=== PATIENT | male | born 1950 | race Caucasian/White ===

== ENCOUNTER → 2016-04-04 | Outpatient (REF) | payer OTHER | LOC: M LAB REF 12:21 | PROVIDERS: ATTEND Internal Medicine | DX: Z01.89 Encounter for other specified special examinations (principal) ==

== ENCOUNTER → 2016-05-06 | Outpatient (CLI) | payer OTHER ==
[2016-05-06 17:38] LABS: ALBUMIN 4.1 GM/DL (3.2-5.2); ANION GAP 10 MEQ/L (8-16); BLOOD UREA NITROGEN 12 MG/DL (7-18); CALCIUM LEVEL 8.5 MG/DL (8.8-10.2); CARBON DIOXIDE LEVEL 25 MEQ/L (21-32); CHLORIDE LEVEL 102 MEQ/L (98-107); CREATININE FOR GFR 0.86 MG/DL (0.70-1.30); GLOMERULAR FILTRATION RATE > 60.0 (>49); GLUCOSE, FASTING 86 MG/DL (80-110); PHOSPHORUS LEVEL 2.7 MG/DL (2.5-4.9); POTASSIUM SERUM 4.8 MEQ/L (3.5-5.1); SODIUM LEVEL 137 MEQ/L (136-145)
== END ==
LOC: M WUC 10:53
PROVIDERS: ATTEND Physician Assistant
DX: R39.12 Poor urinary stream (principal)

== ENCOUNTER → 2017-08-17 | Outpatient (REF) | payer MEDICARE, OTHER ==
[2017-08-17 17:41] LABS: INR 0.94; PROTHROMBIN TIME 12.7 SECONDS (12.4-14.5)
== END ==
LOC: M LAB REF 16:38
DX: R23.9 Unspecified skin changes (principal)
CPT/HCPCS: 85610

== ENCOUNTER → 2017-12-11 | Outpatient (REF) | payer MEDICARE, OTHER ==
[2017-12-11 15:37] LABS: IRON (FE) 70 UG/DL (65-175); PERCENT SATURATION 22.9 % (19.7-50.0); TOTAL IRON BINDING CAPACITY 306 UG/DL (250-450)
[2017-12-11 15:49] LABS: FOLATE 11.4 NG/ML
== END ==
LOC: M LAB REF 12:31
DX: D64.9 Anemia, unspecified (principal)
CPT/HCPCS: 82746

== ENCOUNTER → 2017-12-19 | Outpatient (REF) | payer MEDICARE, OTHER ==
[2017-12-19 13:40] LABS: BASO % 0.2 % (0.0-1.0); EOS # 0.1 10^3/uL (0.0-0.50); HEMATOCRIT 37.4 % (42.0-52.0); HEMOGLOBIN 12.4 g/dl (13.5-17.5); IMMATURE GRANULOCYTE % 0.4 % (0-3.0); LYMPH # 0.7 10^3/uL (1.5-4.5); LYMPH % 14.2 % (24.0-44.0); MEAN CORPUSCULAR HEMOGLOBIN 34.5 pg (27.0-33.0); MEAN CORPUSCULAR HGB CONC 33.2 g/dl (32.0-36.5); MEAN CORPUSCULAR VOLUME 104.2 fl (80.0-96.0); MONO # 0.7 10^3/uL (0.0-0.8); MONO % 13.8 % (0.0-5.0); NEUTROPHILS # 3.4 10^3/uL (1.8-7.7); NEUTROPHILS % 70.4 % (36.0-66.0); PLATELET COUNT, AUTOMATED 208 10^3/uL (150-450); RED BLOOD COUNT 3.59 10^6/uL (4.30-6.10); RED CELL DISTRIBUTION WIDTH 14.1 % (11.5-14.5); WHITE BLOOD COUNT 4.9 10^3/uL (4.0-10.0)
[2017-12-19 13:50] LABS: REASON FOR REVIEW WBC/LEUKEMIA/BLAST; SLIDE REVIEW Report; SOURCE PERIPHERAL SMEAR
== END ==
LOC: M LAB REF 13:21
DX: D72.819 Decreased white blood cell count, unspecified (principal)
CPT/HCPCS: 85025

== ENCOUNTER → 2018-04-28 | Outpatient (CLI) | payer MEDICARE, OTHER ==
--- NOTE | 2018-04-28 12:39 | REP ---
CHEST PA/LATERAL: 04/28/2018. COMPARISON: CT chest 10/31/2012; chest x-ray 05/03/2014, 04/22/2010. CLINICAL HISTORY: Cough and fever, unspecified. FINDINGS: The lung damian are well inflated. There is some basilar fibrotic change and emphysematous changes mid and upper lung zones. Symmetric findings over the anterior 6th rib suggest nipple shadows. I do not see definite effusion, dense consolidation, or parenchymal lung mass. Heart is not enlarged. The aorta is without aneurysm and normal for age. The airway is intact. No vascular redistribution or pulmonary edema. Bony thorax shows marginal osteophytes greatest in the lower thoracic spine anteriorly but without compression deformity or destructive lesion. No free air under the diaphragm. IMPRESSION: 1. Some basilar fibrotic changes with emphysematous changes mid and upper lung zones. No dense consolidation, pleural effusion, or definite mass. Symmetric densities overlying the 6th ribs bilaterally, consistent with nipple shadows. 2. Diffuse degenerative changes, lower thoracic upper lumbar spine, no compression deformity. 3. Heart, mediastinal and hilar contours, aorta, and airway all intact. Electronically Signed by Andrea Espinal MD 04/28/2018 06:57 P
== END ==
LOC: M WUC 10:53
PROVIDERS: ATTEND Physician Assistant
DX: R05 Cough (principal); R50.9 Fever, unspecified

== ENCOUNTER → 2018-05-02 | Outpatient (CLI) | payer MEDICARE, OTHER ==
--- NOTE | 2018-05-02 14:10 | REP ---
Chest two views HISTORY: Shortness of breath Comparison: 04/28/2018 An increase in interstitial markings is present in the lower lobes consistent with chronic interstitial change. The heart is normal in size. The pulmonary vasculature is normal in appearance. The bony structure is intact. IMPRESSION: Bibasilar chronic interstitial fibrosis. Electronically Signed by Checo Knapp MD 05/02/2018 02:01 P
== END ==
LOC: M WUC 12:36
PROVIDERS: ATTEND Nurse Practitioner Family
DX: J84.10 Pulmonary fibrosis, unspecified (principal); R06.02 Shortness of breath

== ENCOUNTER → 2018-05-15 | Outpatient (CLI) | payer MEDICARE, OTHER ==
--- NOTE | 2018-05-15 11:47 | REP ---
CHEST X-RAY: Two views. HISTORY: Shortness of breath. COMPARISON STUDY: May 02, 2018. FINDINGS: Right hemidiaphragm remains slightly elevated. There is linear plate-like atelectasis in the right base today, which is a new finding. No definite infiltrate. Minimal linear plate-like atelectasis is seen along the left heart border as well. Pleural angles are sharp. Heart is not felt to be enlarged. There are degenerative changes in the thoracic spine. IMPRESSION: Mild bibasilar plate-like atelectasis, right more so than left. No definite infiltrate. Electronically Signed by Al Cartagena MD 05/15/2018 12:26 P
== END ==
LOC: M WUC 09:26
PROVIDERS: ATTEND Physician Assistant
DX: R06.09 Other forms of dyspnea (principal)

== ENCOUNTER 2018-08-31 15:41 | Emergency (ER) | payer MEDICARE, OTHER ==
[2018-08-31] MEDS ORDERED: NAPR-885 OR (15:53)
[2018-08-31] MEDS ORDERED: NYAM10003 EXT (15:53)
[2018-08-31] MEDS ORDERED: SIMV20TA2 OR (15:53)
[2018-08-31] MEDS ORDERED: MONT10TA2 OR (15:53)
[2018-08-31] MEDS ORDERED: CICL8SOL3 EXT (15:53)
[2018-08-31 15:59] VITALS: BP 144/66
[2018-08-31] MEDS ORDERED: ADACEL/BOOSTRIX VACCINE (DIPHTH/PERTUSS/ACELL/TETANUS)0.5ML SYR (90715) IM ONE (16:15)
[2018-08-31] MEDS ORDERED: DERMABOND TOPICAL SKIN ADHESIVE TOP ONE (16:15)
[2018-08-31 16:22] LABS: BASO % 0.4 % (0.0-1.0); EOS # 0.1 10^3/uL (0.0-0.50); EOS % 1.4 % (0.0-3.0); HEMATOCRIT 35.4 % (42.0-52.0); HEMOGLOBIN 11.8 g/dl (13.5-17.5); LYMPH # 0.7 10^3/uL (1.5-4.5); LYMPH % 14.8 % (24.0-44.0); MEAN CORPUSCULAR HGB CONC 33.3 g/dl (32.0-36.5); MONO # 0.7 10^3/uL (0.0-0.8); MONO % 13.3 % (0.0-5.0); NEUTROPHILS # 3.4 10^3/uL (1.8-7.7); NEUTROPHILS % 69.9 % (36.0-66.0); PLATELET COUNT, AUTOMATED 180 10^3/uL (150-450); RED BLOOD COUNT 3.47 10^6/uL (4.30-6.10); WHITE BLOOD COUNT 4.9 10^3/uL (4.0-10.0)
[2018-08-31 16:26] LABS: INR 0.99; PROTHROMBIN TIME 12.8 SECONDS (11.8-14.0)
[2018-08-31 16:27] LABS: PARTIAL THROMBOPLASTIN TIME 27.6 SECONDS (25.0-38.4)
[2018-08-31] MEDS ORDERED: KEFL500C17 PO (16:46)
[2018-08-31] MEDS ORDERED: CEPHALEXIN 500 MG CAP PO ONE (17:00)
== END 2018-08-31 16:57 | disposition home or self-care (01) ==
LOC: EDBD 15:41 → M ED 15:41
DX: I73.9 Peripheral vascular disease, unspecified (principal); S81.812A Laceration without foreign body, left lower leg, initial encounter; W26.8XXA Contact with other sharp object(s), not elsewhere classified, initial encounter; Y92.018 Other place in single-family (private) house as the place of occurrence of the external cause; E78.5 Hyperlipidemia, unspecified; Z79.899 Other long term (current) drug therapy; J30.2 Other seasonal allergic rhinitis

== ENCOUNTER → 2019-03-06 | Outpatient (CLI) | payer MEDICARE, OTHER ==
[~2019-03-06] MED LIST: CICL8SOL3 EXT; KEFL500C17 PO; MONT10TA2 OR; NAPR-885 OR; NYAM10003 EXT; SIMV20TA22 OR
--- NOTE | 2019-03-06 13:45 | REPVR ---
PROCEDURE INFORMATION: Exam: CT Maxillofacial Without Contrast, Sinus Exam date and time: 03/06/2019 8:30 AM Age: 68 years old Clinical indication: Sinusitis; Acute recurrent; Additional info: Recurrent max sinusitis TECHNIQUE: Imaging protocol: CT Maxillofacial without contrast. Focus on the sinuses. Radiation optimization: All CT scans at this facility use at least one of these dose optimization techniques: automated exposure control; mA and/or kV adjustment per patient size (includes targeted exams where dose is matched to clinical indication); or iterative reconstruction. COMPARISON: No relevant prior studies available. FINDINGS: Frontal sinuses: Mild inferior LEFT frontal sinus mucosal thickening. LEFT frontal recess mucosal occlusion. Ethmoid air cells: Mild focal bilateral ethmoid air cell mucosal thickening. Sphenoid sinuses: Normal. No air-fluid levels. Patent bilateral sphenoid ostia. Maxillary sinuses: The LEFT maxillary sinus is approximately 90% filled with dependent fluid with mild visible anterior mucosal thickening. Because cell occlusion LEFT maxillary sinus ostiomeatal complex. A cyst/polyp is present in the inferior RIGHT maxillary sinus zygomatic recess. Patent RIGHT maxillary sinus ostiomeatal complex. Mild inferior RIGHT maxillary sinus mucosal thickening. Orbits: Orbits are normal. Globes are unremarkable. Nasal cavity/Septum: Unremarkable. Soft tissues: Unremarkable. Bones/joints: Unremarkable. IMPRESSION: Bilateral maxillary sinusitis with possible acute LEFT maxillary sinusitis, with LEFT maxillary sinus ostiomeatal complex occlusion. LEFT frontal recess disease. Middle bilateral ethmoid sinusitis. Electronically signed by: Khoa Anderson On 03/06/2019 13:44:30 PM
== END ==
LOC: M RAD 08:23
PROVIDERS: ATTEND Specialist
DX: J32.1 Chronic frontal sinusitis (principal); J01.00 Acute maxillary sinusitis, unspecified; J01.20 Acute ethmoidal sinusitis, unspecified

== ENCOUNTER → 2019-05-01 | Outpatient (REF) | payer MEDICARE, OTHER ==
[~2019-05-01] MED LIST changes: -MONT10TA2 OR; +MONT10TA4 OR
[2019-05-03 08:17] LABS: PROTEIN C FUNCTIONAL ACTIVITY 115 % (73-180); PROTEIN S FUNCTIONAL ACTIVITY 117 % (63-140)
== END ==
LOC: M LAB REF 14:04
PROVIDERS: ATTEND Nurse Practitioner Adult Health
DX: D69.2 Other nonthrombocytopenic purpura (principal)

== ENCOUNTER → 2020-11-05 | Outpatient (CLI) | payer MEDICARE, OTHER ==
[~2020-11-05] MED LIST changes: +MONT10TA10 OR; -MONT10TA4 OR
--- NOTE | 2020-11-06 00:01 | REPVR ---
PROCEDURE INFORMATION: Exam: CT Maxillofacial Without Contrast, Sinus Exam date and time: 11/05/2020 11:19 AM Age: 70 years old Clinical indication: Maxillary facial pain. Chronic sinusitis TECHNIQUE: Imaging protocol: CT Maxillofacial without contrast. Focus on the sinuses. Radiation optimization: All CT scans at this facility use at least one of these dose optimization techniques: automated exposure control; mA and/or kV adjustment per patient size (includes targeted exams where dose is matched to clinical indication); or iterative reconstruction. COMPARISON: CT Maxilofacial w/out contrast 03/06/2019 8:37 AM FINDINGS: Frontal sinuses: Normal. No air-fluid levels. Ethmoid air cells: Mild mucosal thickening of several left ethmoid air cells. Sphenoid sinuses: Normal. No air-fluid levels. Maxillary sinuses: Near complete opacification of the left maxillary sinus with prominent surrounding osseous cortical thickening, compatible with chronic sinusitis. Mild mucosal thickening of the right maxillary sinus. Nasal cavity/Septum: Unremarkable. Orbital cavity: Orbits are normal. Globes are unremarkable. Bones/joints: Unremarkable. Soft tissues: Unremarkable. Dental: Prominent periapical lucency surrounding the root of a left maxillary molar, which communicates with the left maxillary sinus. Additional periapical lucencies of the partially visualized teeth. Brain: Chronic bilateral cerebellar hemisphere infarcts. IMPRESSION: 1. Severe chronic left maxillary sinusitis. Prominent periapical lucency surrounding the root of a left maxillary molar, which communicates with the left maxillary sinus, suspected etiology of the chronic left maxillary sinusitis. Recommend ENT and dental consultation. 2. Other findings, as above. Electronically signed by: Angel Wilkinson On 11/06/2020 00:01:48 AM
== END ==
LOC: M PLAIMG 10:54
PROVIDERS: ATTEND Specialist
DX: J32.4 Chronic pansinusitis (principal)

== ENCOUNTER → 2021-03-16 | Outpatient (CLI) | payer MEDICARE, OTHER ==
[~2021-03-16] MED LIST changes: -MONT10TA10 OR; +MONT10TA97 OR
== END ==
LOC: M LABSMTC 10:53
PROVIDERS: ATTEND Anesthesiology
DX: Z01.812 Encounter for preprocedural laboratory examination (principal); Z11.52 Encounter for screening for COVID-19

== ENCOUNTER → 2023-11-15 | Outpatient (CLI) | payer MEDICARE, OTHER ==
[~2023-11-15] MED LIST changes: +ACET-683 PO; +CICL6.6S EXT; -CICL8SOL3 EXT; -NAPR-885 OR; +NAPR-885 PO; +VITA100062 PO; +ZYRT10TA12 PO
== END ==
LOC: M RAD 13:43
PROVIDERS: ATTEND Internal Medicine
DX: Z12.2 Encounter for screening for malignant neoplasm of respiratory organs (principal); F17.211 Nicotine dependence, cigarettes, in remission; R91.8 Other nonspecific abnormal finding of lung field